=== PATIENT | female | born 1975 | race Caucasian/White ===

== ENCOUNTER 2017-07-06 13:26 | Emergency (ER) | payer MEDICAID ==
[~2017-07-06] VITALS: Ht 149.9 cm; Wt 54.9 kg
[2017-07-06 14:02] VITALS: Ht 149.9 cm; Wt 54.9 kg
[2017-07-06 14:47] VITALS: BP 114/68
== END 2017-07-06 14:47 | disposition home or self-care (01) ==
LOC: ED 13:26
DX: H92.01 Otalgia, right ear (principal)